=== PATIENT | female | born 1985 | race Caucasian/White ===

== ENCOUNTER 2017-09-17 20:31 | Emergency (ER) | payer MEDICAID ==
[~2017-09-17] VITALS: Ht 157.5 cm; Wt 64.7 kg
[~2017-09-17 20:31] MED LIST: LORA-445; NICO-485 TD; NITR100C6 PO; QUET100T4 PO
[2017-09-17 20:38] VITALS: BP 110/72
[2017-09-17] MEDS ORDERED: DIPH,PERTUSS(ACELL),TET VAC/PF 0.5 ML IM-VACC ONE ×2 (21:00→21:02)
== END 2017-09-17 21:54 | disposition home or self-care (01) ==
LOC: ED 21:20
DX: L03.116 Cellulitis of left lower limb (principal); M79.672 Pain in left foot
CPT/HCPCS: 90471; 90715; 99284